=== PATIENT | male | born 1975 | race Caucasian/White ===

== ENCOUNTER 2017-11-03 16:39 | Inpatient (IN) | payer OTHER ==
[2017-11-03] MEDS ORDERED: SODIUM CHLORIDE 0.9% 1,000 ML IV STA (17:17)
--- NOTE | 2017-11-03 17:18 | ED ---
Abdominal Pain HPI - General Chief Complaint: Abdominal Pain Stated Complaint: Abd Pain Time Seen by Provider: 11/03/17 16:58 Source: patient, RN notes reviewed Mode of arrival: ambulatory Limitations: no limitations - History of Present Illness Initial Comments: This is a 42-year-old male who presents to the emergency department with chief complaint of abdominal pain. Patient states that he has been experiencing this abdominal pain for the past 3 years. He states that it comes and goes. He states that yesterday afternoon the pain returned. He states that it started out as a dull ache and then last night it became very intense. He describes it as sharp with radiation to his scrotum and upper abdomen. He states that he has suprapubic discomfort that is pressure-like and he feels like he has to urinate but is unable to. He states that in the past and this pain has lasted for a day or 2 and then went away. Patient states that last evening the pain became so intense that he fainted, fell over and hit his face on the bathtub. He states he believes this happened because the pain was extreme and intense. Patient denies any nausea or vomiting, diarrhea or constipation. He denies having a headache or dizziness today. Patient states that he has had chills and fevers yesterday and today. Patient states that now the pain is mild and has improved. He states he was taking Tylenol yesterday with minimal relief. Patient states pain is made better with slouching and pain is worse with sitting up straight or walking. - Related Data Home Medications Medication Instructions Recorded Confirmed No Known Home Medications [No 11/03/17 11/03/17 Known Home Medications] Allergies Allergy/AdvReac Type Severity Reaction Status Date / Time No Known Allergies Allergy Verified 11/03/17 16:53 Review of Systems ROS Statement: Those systems with pertinent positive or pertinent negative responses have been documented in the HPI. ROS Other: All systems not noted in ROS Statement are negative. Past Medical History Past Medical History: No Reported History History of Any Multi-Drug Resistant Organisms: MRSA Date of last positivie culture/infection: 2006 MDRO Source:: leg Past Surgical History: Hernia Repair Past Psychological History: No Psychological Hx Reported Smoking Status: Former smoker Past Alcohol Use History: Occasional Past Drug Use History: None Reported General Exam - General Exam Comments Initial Comments: General: Awake and alert, well-developed; in no apparent distress. HEENT: Head atraumatic, normocephalic. Pupils are equal, round and reactive to light. Extraocular movements intact. Oropharynx moist without erythema or exudate. Neck: Supple. Normal ROM. Cardiovascular: Regular rate and rhythm. No murmurs, rubs or gallops. Chest symmetrical. Respiratory: Lungs clear to auscultation bilaterally. No wheezes, rales or rhonchi. Normal respiratory effort with no use of accessory muscles. Abdomen: Abdomen is mildly distended. Suprapubic and periumbilical tenderness on palpation. Hypoactive bowel sounds 4 quadrants. Musculoskeletal: Normal ROM, no tenderness bilateral upper and lower extremities. Ambulating normally. Skin: [place], warm and dry without rashes or lesions. Neurological: Alert and oriented x3. CN II-XII grossly intact. Speech is fluent and answers are appropriate. No focal neuro deficits. Psychiatric: Normal mood and affect. No overt signs of depression or anxiety noted. Limitations: no limitations ([place] vital signs: Temperature 99.6, pulse 102, respirations 18, blood pressure 155/82, 96% on room air.) Course Vital Signs 11/03/17 11/03/17 11/03/17 16:42 18:02 18:19 Temperature 99.6 F 101.2 F H Pulse Rate 102 H 91 Respiratory 18 16 Rate Blood Pressure 155/82 145/81 O2 Sat by Pulse 96 97 Oximetry Medical Decision Making - Medical Decision Making This is a 42-year-old male who presented to the emergency department with chief complaint of suprapubic pain for one day. Patient states that he has had difficulty urinating and has pressure-like, sharp suprapubic pain that radiates up to his mid abdomen and down to his scrotum. He has reports fevers and chills. No nausea, vomiting diarrhea or constipation. On physical examination , abdomen is mildly distended, tenderness on palpation of suprapubic and periumbilical regions, hypoactive bowel sounds. CBC revealed a white count of 17.4 with left shift at 14.4. CMP was unremarkable. UA revealed small blood, however was otherwise unremarkable. CT of the abdomen and pelvis with contrast revealed evidence for acute uncomplicated sigmoid diverticulitis without perforation or abscess. It also revealed thickening of the urinary bladder likely due to surrounding inflammatory changes as well as mild. Periappendiceal fat stranding, however no other evidence for acute appendicitis. Patient did develop a fever while in the emergency department. He was started Ofirmev. Blood cultures are pending. Patient will be started on Flagyl and Levaquin. Patient is in agreement for admission. He will be admitted to Dr. Fajardo. - Lab Data Result diagrams: 11/03/17 17:24 11/03/17 17:24 Lab Results 11/03/17 11/03/17 11/03/17 Range/Units 17:24 17:24 18:00 WBC 17.4 H (3.8-10.6) k/uL RBC 5.20 (4.30-5.90) m/uL Hgb 15.0 (13.0-17.5) gm/dL Hct 44.4 (39.0-53.0) % MCV 85.5 (80.0-100.0) fL MCH 28.9 (25.0-35.0) pg MCHC 33.8 (31.0-37.0) g/dL RDW 12.8 (11.5-15.5) % Plt Count 289 (150-450) k/uL Neutrophils % 83 % Lymphocytes % 10 % Monocytes % 6 % Eosinophils % 1 % Basophils % 0 % Neutrophils # 14.4 H (1.3-7.7) k/uL Lymphocytes # 1.7 (1.0-4.8) k/uL Monocytes # 1.0 (0-1.0) k/uL Eosinophils # 0.2 (0-0.7) k/uL Basophils # 0.0 (0-0.2) k/uL Sodium 141 (137-145) mmol/L Potassium 3.5 (3.5-5.1) mmol/L Chloride 102 (98-107) mmol/L Carbon Dioxide 23 (22-30) mmol/L Anion Gap 16 mmol/L BUN 9 (9-20) mg/dL Creatinine 0.90 (0.66-1.25) mg/dL Est GFR (CKD-EPI)AfAm >90 (>60 ml/min/1.73 sqM) Est GFR (CKD-EPI)NonAf >90 (>60 ml/min/1.73 sqM) Glucose 115 H (74-99) mg/dL Calcium 9.6 (8.4-10.2) mg/dL Total Bilirubin 1.1 (0.2-1.3) mg/dL AST 29 (17-59) U/L ALT 37 (21-72) U/L Alkaline Phosphatase 88 (38-126) U/L Total Protein 7.5 (6.3-8.2) g/dL Albumin 4.6 (3.5-5.0) g/dL Amylase 37 (30-110) U/L Lipase 15 L (23-300) U/L Urine Color Yellow Urine Appearance Clear (Clear) Urine pH 6.5 (5.0-8.0) Ur Specific Jackson 1.007 (1.001-1.035) Urine Protein Trace H (Negative) Urine Glucose (UA) Negative (Negative) Urine Ketones Negative (Negative) Urine Blood Small H (Negative) Urine Nitrite Negative (Negative) Urine Bilirubin Negative (Negative) Urine Urobilinogen <2.0 (<2.0) mg/dL Ur Leukocyte Esterase Negative (Negative) Urine RBC <1 (0-5) /hpf Urine WBC 2 (0-5) /hpf Urine Mucus Rare H (None) /hpf - Radiology Data Radiology results: report reviewed, image reviewed CT abdomen and pelvis with contrast impression: 1. Findings indicative of severe acute uncomplicated sigmoid diverticulitis with no pericolonic fluid collection to suggest abscess and no free air. Low attenuation within the bowel henriquez is favored to represent diffuse edema rather than early intramural abscess. 2. Circumferential thickening of the urinary bladder is likely reacted to the adjacent extensive inflammatory changes in the pelvis and under distention of the urinary bladder. 3. Very mild periappendiceal fat stranding is seen although no other evidence of appendicitis is identified. Disposition Clinical Impression: Sigmoid diverticulitis Disposition: ADMITTED IP TO THIS [facility] Condition: Stable Is patient prescribed a controlled substance at d/c from ED?: No Referrals: Jaden Fajardo MD [Primary Care Provider] - 1-2 days Time of Disposition: 18:50
[2017-11-03 17:37] LABS: Basophils % (A) 0 %; Eosinophils # (A) 0.2 k/uL (0-0.7); Eosinophils % (A) 1 %; HCT 44.4 % (39.0-53.0); Lymphocytes # (A) 1.7 k/uL (1.0-4.8); Lymphocytes % (A) 10 %; MCH 28.9 pg (25.0-35.0); MCHC 33.8 g/dL (31.0-37.0); MCV 85.5 fL (80.0-100.0); Mean Platelet Volume 6.9; Monocytes % (A) 6 %; Neutrophils # (A) 14.4 k/uL (1.3-7.7); Neutrophils % (A) 83 %; Platelet Count 289 k/uL (150-450); RDW 12.8 % (11.5-15.5); WBC 17.4 k/uL (3.8-10.6)
[2017-11-03] MEDS ORDERED: ACETAMINOPHEN IV (For NPO) 1,000 MG in EMPTY BAG 1 BAG IVPB STA (18:03)
[2017-11-03 18:06] LABS: ALT 37 U/L (21-72); AST 29 U/L (17-59); Albumin 4.6 g/dL (3.5-5.0); Alkaline Phosphatase 88 U/L (38-126); Amylase 37 U/L (30-110); Anion Gap 16 mmol/L; Blood Urea Nitrogen 9 mg/dL (9-20); Calcium 9.6 mg/dL (8.4-10.2); Carbon Dioxide 23 mmol/L (22-30); Chloride 102 mmol/L (98-107); Glucose 115 mg/dL (74-99); Lipase 15 U/L (23-300); Potassium 3.5 mmol/L (3.5-5.1); Sodium 141 mmol/L (137-145); Total Bilirubin 1.1 mg/dL (0.2-1.3); Total Protein 7.5 g/dL (6.3-8.2)
[2017-11-03 18:18] LABS: Appearance,Urine Clear (Clear); Bilirubin,Urine Negative (Negative); Blood,Urine Small (Negative); Color,Urine Yellow; Glucose,Urine (UA) Negative (Negative); Ketones,Urine Negative (Negative); Leukocyte Esterase,Urine Negative (Negative); Mucus,Urine Rare /hpf; Nitrite,Urine Negative (Negative); PH, Urine 6.5 (5.0-8.0); Protein,Urine Trace (Negative); RBC,Urine <1 /hpf (0-5); Specific Gravity,Urine 1.007 (1.001-1.035); Urobilinogen,Urine <2.0 mg/dL (<2.0); WBC,Urine 2 /hpf (0-5)
--- NOTE | 2017-11-03 18:36 | CT ---
EXAMINATION TYPE: CT abdomen pelvis w con DATE OF EXAM: 11/03/2017 COMPARISON: NONE HISTORY: Suprapubic pain, fever. CT DLP: 686.1 mGycm Automated exposure control for dose reduction was used. TECHNIQUE: Helical acquisition of images was performed from the lung bases through the pelvis. CONTRAST: Performed without Oral Contrast and with IV Contrast, patient injected with 100 mL of Isovue 300. FINDINGS: LUNG BASES: No significant abnormality is appreciated. LIVER/GB: No significant abnormality is appreciated. No cholelithiasis seen. PANCREAS: Enhances homogeneously without ductal dilatation. SPLEEN: Nonenlarged. ADRENALS: No significant abnormality is seen. KIDNEYS: 2 small to accurately characterize posterior cortical right mid pole renal lesion is seen. FREE AIR: No free air is visualized. REPRODUCTIVE ORGANS: There is heterogeneity of the prostate gland, which appears nonenlarged. URINARY BLADDER: Circumferential thickening of the urinary bladder wall likely relates to incomplete distention and reactive change from the adjacent extensive pericolonic inflammatory change. ADENOPATHY: No greater than 1 cm short axis lymph node is seen within the abdomen or pelvis. OSSEOUS STRUCTURES: No significant abnormality is seen. BOWEL: There is very minimal periappendiceal nonspecific fat stranding although the distal appendix contains air in the appendix is nonenlarged. Appendix is retrocecal in the right lower quadrant. Ther e is extensive pericolonic fat stranding around the thickened henriquez of the sigmoid colon that contain s numerous sigmoid diverticula. No free air is seen to suggest perforation. No pericolonic fluid noel ection to correlate to abscess. Low-density within the bowel wall itself more likely relates to phleg monous changes. IMPRESSION: 1. FINDINGS INDICATIVE OF SEVERE ACUTE UNCOMPLICATED SIGMOID DIVERTICULITIS WITH NO PERICOLONIC FLUID COLLECTION TO SUGGEST ABSCESS AND NO FREE AIR. LOW-ATTENUATION WITHIN THE BOWEL HENRIQUEZ IS FAVORED TO REPRESENT DIFFUSE EDEMA RATHER THAN EARLY INTRAMURAL ABSCESS. 2. CIRCUMFERENTIAL THICKENING OF THE URINARY BLADDER IS LIKELY REACTIVE TO THE ADJACENT EXTENSIVE INF LAMMATORY CHANGES IN THE PELVIS AND UNDERDISTENTION OF THE URINARY BLADDER. 3. VERY MILD PERIAPPENDICEAL FAT STRANDING IS SEEN ALTHOUGH NO OTHER EVIDENCE OF APPENDICITIS IS IDEN TIFIED.
[2017-11-03] MEDS ORDERED: LEVOFLOXACIN 500MG-D5W PMX 500 MG in DEXTROSE/WATER 1 100ML.BAG IVPB STA (18:39)
[2017-11-03] MEDS ORDERED: metroNIDAZOLE-NS PMX 500 MG in SALINE 1 100ML.BAG IVPB STA ×2 (18:39→18:55)
[2017-11-03] MEDS ORDERED: ACETAMINOPHEN TAB 325 MG TAB PO PRN (18:50)
[2017-11-03] MEDS ORDERED: IBUPROFEN 400 MG TAB PO PRN (18:50)
[2017-11-03] MEDS ORDERED: NALOXONE 0.4 MG/ML 1 ML VIAL IV PRN (18:50)
[2017-11-03] MEDS: SODIUM CHLORIDE 0.9% 1,000 ML IV SCH (19:02)
--- NOTE | 2017-11-03 20:37 | P.HPIM ---
History of Present Illness H&P Date: 11/03/17 Chief Complaint: Acute abdominal pain Acute abdominal pain in bouts started yesterday associated with high temperature without nausea and vomiting or diarrhea, no hematochezia or hematemesis, the pain grade this 10 over 10 and in the area of the lower pelvis. Computed tomography scan of the abdomen and pelvis, indicate acute diverticulitis of the sigmoid colon. Patient admitted to the hospital 384 bed 2. Patient will be followed by Dr. Fajardo tomorrow on 11/04/2017. History and physical dictated on the number of dictation # [id number] Past Medical History Past Medical History: No Reported History History of Any Multi-Drug Resistant Organisms: MRSA Date of last positivie culture/infection: 2006 MDRO Source:: leg Past Surgical History: Hernia Repair Past Psychological History: No Psychological Hx Reported Smoking Status: Former smoker Past Alcohol Use History: Occasional Past Drug Use History: None Reported Medications and Allergies Home Medications Medication Instructions Recorded Confirmed Type No Known Home Medications [No 11/03/17 11/03/17 History Known Home Medications] Allergies Allergy/AdvReac Type Severity Reaction Status Date / Time No Known Allergies Allergy Verified 11/03/17 16:53 Physical Exam Vitals: Vital Signs Temp Pulse Resp BP Pulse Ox 11/03/17 19:35 100.2 F H 80 19 133/74 100 11/03/17 18:54 100.6 F H 11/03/17 18:19 91 16 145/81 97 11/03/17 18:02 101.2 F H 11/03/17 16:42 99.6 F 102 H 18 155/82 96 Intake and Output 11/03/17 11/03/17 11/03/17 06:59 14:59 22:59 Other: Weight 86.183 kg Results CBC & Chem 7: 11/03/17 17:24 11/03/17 17:24 Labs: Abnormal Lab Results - Last 24 Hours (Table) 11/03/17 11/03/17 11/03/17 Range/Units 17:24 17:24 18:00 WBC 17.4 H (3.8-10.6) k/uL Neutrophils # 14.4 H (1.3-7.7) k/uL Glucose 115 H (74-99) mg/dL Lipase 15 L (23-300) U/L Urine Protein Trace H (Negative) Urine Blood Small H (Negative) Urine Mucus Rare H (None) /hpf
[2017-11-04] MEDS ORDERED: metroNIDAZOLE-NS PMX 500 MG in SALINE 1 100ML.BAG IVPB SCH ×2 (02:00)
[2017-11-04] MEDS: MORPHINE SULFATE 2 MG/ML SYRINGE IV PRN ×5 (02:27→22:33)
[2017-11-04] MEDS: SODIUM CHLORIDE 0.9% 1,000 ML IV SCH ×2 (02:27→16:23)
[2017-11-04] MEDS ORDERED: LEVOFLOXACIN 500MG-D5W PMX 500 MG in DEXTROSE/WATER 1 100ML.BAG IVPB SCH (09:00)
[2017-11-04] MEDS: metroNIDAZOLE-NS PMX 500 MG in SALINE 1 100ML.BAG IVPB SCH ×3 (09:33→23:57)
--- NOTE | 2017-11-04 10:39 | HP ---
HISTORY AND PHYSICAL DATE OF SERVICE: 11/03/2017. IDENTIFYING DATA: Age [age] years old, white male, . ATTENDING PHYSICIAN: Dr. Fajardo. I am dictating the admission history and physical by Dr. Salter in the temporary absence of Dr. Fajardo. Dr. Fajardo will see the patient tomorrow and follow him. CHIEF COMPLAINT: Abdominal pain with fever. HISTORY OF PRESENT ILLNESS: A 42-year-old white male was yesterday at home and with his children, 2 boys, and prior to that any medical problem, and he has himself no history of any abdominal problem. However, he had a past history of bouts of thought to be prostatitis, but was not really treated and was passed through. Currently he felt feverish during the night and his temperature here was 101.2, and he had severe pain in the lower abdomen in the bladder area. He thought that it is from his prostate or he has a problem with the urine. Subsequently he waited for today, and today still his pain become progressively severe, apparently 10/10. He even could not touch his abdomen. The patient subsequently came to the emergency room, was seen and evaluated by Dr. Pablo, the ER physician, and they did a CT scan of the abdomen and the report was indicating the CT scan is significant of severe acute uncomplicated sigmoid diverticulitis with no pericolonic fluid collection to suggest abscess. No free air. He has low attenuation within the bowel wall, favored to represent diffuse edema rather than early intraluminal abscesses. Also, he had circumferential thickening of the urinary bladder, likely reactive to adjacent extensive inflammation in the pelvis area and under distention of the urinary bladder. Also, they found very mild pre-appendical fat stranding and is seen through without any other evidence of appendicitis. With these findings of the CT scan, the patient was admitted to the hospital for further antibiotic and hydration. In the emergency room he was seen initially by Lawanda Mcclain, the PA in the ER, and subsequently Dr. Pablo did see the patient. The disposition was acute sigmoid diverticulitis. Laboratories were indicating the urine was trace protein, small blood, negative nitrite, negative bilirubin and negative leukocyte, RBC less than 1, WBC 2, with the indication of no evidence of UTI. His amylase is 37 and lipase 15, and his total protein is 7.5, and alkaline phosphatase was normal. His white count is 17.4 with a hemoglobin 15 and hematocrit 44.4, and the MCV 85.5. His electrolytes are indicating sodium 141, potassium 3.5, and creatinine is 0.9, and BUN is 9. He has slightly elevated anion gap, probably with mild dehydration. His liver enzymes were normal. FAMILY HISTORY: He is . He has 2 boys, 9 and 8, and he has 2 brothers, full-blood related, Jada Anders, and his mother. They have also family history of diverticulitis in the family as well. MEDICATIONS: None. REVIEW OF SYSTEM: NEUROPSYCHIATRIC: Negative. CARDIOVASCULAR: Negative. RESPIRATORY: Negative. No asthma. No wheeze. GI: He has a history of lower abdominal pain intermittently, minimal time as estimated 1 day or 2 and goes away. : He has no symptoms. NEUROLOGIC: No symptoms. PSYCHIATRY: No symptoms. PHYSICAL EXAM: The patient is a 42-year-old white male, conscious, alert, oriented x3. His presentation with the initial the temperature 99.6 and followed by 100.2, followed by 100.6 and followed by 100.2, with presentation of pyrexia. Blood pressure was initially with the pain 155/82, the blood pressure followed by gradual improvement 145/81 and 133/74. He is on room air was satisfactory with the room air pulse ox 96 and 97 and 100%. HEENT: The head was normocephalic, atraumatic. Pupil was equal, reactive. Conjunctivae was pink. Sclerae was nonicteric. His nose was negative. Oropharynx was normal natural teeth. Uvula midline. Ears, no problem. No complain and no discharge. NECK: Supple. No JVD. No thyromegaly. No lymphadenopathy. Trachea midline. CHEST: Clear to auscultation and percussion and no wheezes, no rhonchi. HEART: PMI in the 5th intercostal space. Normal S1, S2. No gallop. The patient has never had high blood pressure or medication for it. ABDOMEN: Soft upper quadrant, however, the lower quadrant is extremely painful with even light touch as well as suprapubic area. EXTREMITIES: Normal and no edema and positive pulses bilateral and good perfusion. ASSESSMENT: Acute diverticulitis of the sigmoid colon, first presentation and first attack. Initial blood pressure, hypertension, and pyrexia associated with disease. PLAN: The patient was started already on medication and antibiotic as well. Because of the pain was given morphine sulfate by the ER for the underlying severe pain. He is on metronidazole as well as levofloxacin and Tylenol orally and he will be n.p.o. and IV fluid. Dr. Fajardo will see the patient tomorrow for continuing care. MMZARINA / SANJAYN: [id number] /
[2017-11-04] MEDS: LEVOFLOXACIN 500MG-D5W PMX 500 MG in DEXTROSE/WATER 1 100ML.BAG IVPB SCH (18:58)
--- NOTE | 2017-11-04 19:21 | PN ---
PROGRESS NOTE ATTENDING PHYSICIAN: Dr. Aletha Fajardo. CHIEF COMPLAINT: Re-evaluation. HISTORY OF PRESENT ILLNESS: This is a 42-year-old gentleman who was admitted to the hospital with abdominal pain. Evaluation has suggested the patient has acute diverticulitis. The patient has had fever, chills and his findings are consistent with diverticulitis on a CT scan. The patient still complains of some difficulty in voiding. REVIEW OF SYSTEMS: Neuro: Denies any headaches, dizziness. Psych: No anxiety. Cardiac: No chest pain, angina, palpitations. Respiratory: Denies shortness of breath, cough. GI: No nausea, vomiting. Complains of abdominal pain. No diarrhea. : No symptoms of dysuria, hematuria, urgency, frequency. EXTREMITIES: No pain. Constitutional: No fever or chills. PHYSICAL EXAMINATION: Pleasant gentleman. Temperature of 98.6, pulse 78, respiration 14, blood pressure 130/74 this morning, temperature 99.7 early in the night. HEENT: Normocephalic. NECK: Supple. No JVD. Conjunctivae pink. Sclerae nonicteric. Chest examination clear to auscultation and percussion. Cardiac: Normal S1, S2 with no gallops, murmurs. ABDOMEN: The abdomen tender, protuberant. Bowel sounds active. Extremities: Reveal no edema. No tenderness. Neurological: Awake, alert, oriented with well-coordinated movements. LABORATORY ASSESSMENT: None yet. ASSESSMENT: Acute diverticulitis. PLAN: The patient is stable. Continue present medical regimen. Patient's condition discussed with the patient. Prognosis guarded. The patient will be continued on Levaquin and Flagyl. The patient's condition is guarded. Prognosis guarded. MMODL / IJN: [id number] /
[2017-11-04] MEDS: HEPARIN SODIUM,PORCINE 5,000 UNIT/ML 1 ML VIAL SQ SCH (22:33)
[2017-11-05] MEDS: SODIUM CHLORIDE 0.9% 1,000 ML IV SCH ×3 (00:30→23:19)
[2017-11-05 07:47] LABS: HCT 37.6 % (39.0-53.0); HGB 12.7 gm/dL (13.0-17.5); MCH 30.5 pg (25.0-35.0); MCHC 33.9 g/dL (31.0-37.0); MCV 89.9 fL (80.0-100.0); Mean Platelet Volume 6.8; Platelet Count 216 k/uL (150-450); RBC 4.18 m/uL (4.30-5.90); RDW 13.6 % (11.5-15.5); WBC 10.7 k/uL (3.8-10.6)
[2017-11-05 08:07] LABS: Anion Gap 14 mmol/L; Blood Urea Nitrogen 9 mg/dL (9-20); Calcium 8.8 mg/dL (8.4-10.2); Carbon Dioxide 24 mmol/L (22-30); Chloride 104 mmol/L (98-107); Glucose 91 mg/dL (74-99); Potassium 4.1 mmol/L (3.5-5.1); Sodium 142 mmol/L (137-145)
[2017-11-05] MEDS: metroNIDAZOLE-NS PMX 500 MG in SALINE 1 100ML.BAG IVPB SCH ×3 (08:08→23:19)
[2017-11-05] MEDS: HEPARIN SODIUM,PORCINE 5,000 UNIT/ML 1 ML VIAL SQ SCH ×3 (08:09→23:19)
[2017-11-05 09:42] LABS: Erythrocyte Sedimentation Rate 87 mm/hr (0-15)
[2017-11-05] MEDS: MORPHINE SULFATE 2 MG/ML SYRINGE IV PRN (12:27)
[2017-11-05] MEDS: LEVOFLOXACIN 500MG-D5W PMX 500 MG in DEXTROSE/WATER 1 100ML.BAG IVPB SCH (18:18)
--- NOTE | 2017-11-05 23:16 | PN ---
PROGRESS NOTE ATTENDING PHYSICIAN: Dr. Aletha Fajardo. CHIEF COMPLAINT: Re-evaluation. HISTORY OF PRESENT ILLNESS: This 42-year-old gentleman was admitted to the hospital with acute diverticulitis. He is feeling better. REVIEW OF SYSTEMS: NEURO: Denies any headaches, dizziness. PSYCH: No anxiety. CARDIAC: No chest pain, angina, palpitations. RESPIRATORY: No shortness of breath, cough. GI: No nausea, vomiting. Abdominal pain improved. No bowel movement. : No symptoms of dysuria, hematuria. EXTREMITIES: Denies pain. CONSTITUTIONAL: No fever, chills. PHYSICAL EXAMINATION: Pleasant gentleman in no distress. VITAL SIGNS: Temperature 97.5, pulse 78, respirations 16, blood pressure 126/84, pulse ox of 98% on room air. HEENT: Normocephalic. NECK: No JVD. CHEST: Clear to auscultation and percussion. CARDIAC: Normal S1, S2 with no gallops, murmurs. ABDOMEN: Less distended. Bowel sounds present. Mild tenderness, lower abdomen. Some guarding, left lower quadrant. Bowel sounds active. Extremities reveal no edema. NEUROLOGICALLY: Awake, alert, oriented with well-coordinated movements. LABORATORY ASSESSMENT: White count down to 10.7, hemoglobin 12.7. Sed rate is 87. Electrolytes: BUN and creatinine normal. ASSESSMENT: Acute diverticulitis. PLAN: Continue present medical regimen. Patient's condition discussed with the patient. The patient was started on full liquid diet. If the patient continues to tolerate that, potential discharge home on oral antibiotics. The patient's condition is discussed with the patient. Prognosis guarded. MMODL / IJN: [id number] /
[2017-11-06 05:42] VITALS: PULSE 54; RESP 14
[2017-11-06] MEDS: HEPARIN SODIUM,PORCINE 5,000 UNIT/ML 1 ML VIAL SQ SCH (08:30)
[2017-11-06] MEDS: metroNIDAZOLE-NS PMX 500 MG in SALINE 1 100ML.BAG IVPB SCH (08:38)
[2017-11-06 08:50] VITALS: BP 151/87; TEMP 98.4
[2017-11-06 09:46] VITALS: BMI 28.0
== END 2017-11-06 10:26 | disposition home or self-care (01) | DRG 392 ==
LOC: EC 16:39 → 3SUR 18:49 → 5MS5E 11-05 09:11
PROVIDERS: ADMIT Internal Medicine; ATTEND Internal Medicine
DX: K57.32 Diverticulitis of large intestine without perforation or abscess without bleeding (principal); E86.0 Dehydration; Z87.891 Personal history of nicotine dependence; Z86.14 Personal history of Methicillin resistant Staphylococcus aureus infection
CPT/HCPCS: 36415; 74177; 80048; 80053; 81001; 82150; 83690; 85025; 85027; 85652; 87040; 87086; 93005; 96361; 96365; 96375; 99285

== ENCOUNTER 2018-01-09 07:00 | Day surgery (SDC) | payer OTHER ==
[2018-01-07 09:57] VITALS: BMI 25.1
[~2018-01-09 07:00] MED LIST: DEXAMETHASONE SOD PHOSPHATE 10 MG/ML 1 ML VIAL IV ONE; HYDROmorphone 0.5 MG/0.5 ML SYRINGE IVP PRN; LACTATED RINGERS 1,000 ML IV SCH; ONDANSETRON 4 MG/2 ML VIAL IVP ONE
[2018-01-09] MEDS ORDERED: IV FLUID CONTINUATION 1,000 ML IV ONE (07:08)
[2018-01-09 07:18] VITALS: RESP 16; TEMP 98.2
[2018-01-09] MEDS ORDERED: PROPOFOL 10 MG/ML 20 ML VIAL IV ONE (07:45)
--- NOTE | 2018-01-09 08:28 | P.OP ---
Date of Procedure: 01/09/18 Preoperative Diagnosis: Diverticulitis Postoperative Diagnosis: Diverticulosis and sigmoid polyp Procedure(s) Performed: colonoscopy with polypectomy Anesthesia: MAC Surgeon: Eugenio Leal Estimated Blood Loss (ml): 0 Pathology: other (sigmoid polyp) Condition: stable Disposition: same day Description of Procedure: Patient was brought into endo suite. Placed in left lateral decub position. Timeout was performed correct patient correct procedure correct site was verified.Rectal exam was performed no abnormalities were noted scope was passed through the rectum and into the sigmoid where there was multiple diverticuli noted. There was a tortuous sigmoid colon. It was felt that it would be safest for the patient to proceed with the pediatric scope. Scope was switched to a pediatric scope which was then passed from the rectum to the cecum with ease. Scope was slowly withdrawn being sure to visualize all henriquez of the colon on the way out. There was a small sigmoid polyp noted this was removed via snare polypectomy. This was sent to pathology. Scope was retroflexed in the rectum and no abnormalities were noted. Patient tolerated procedure well no apparent complications. He'll follow-up in the office regarding pathology of polyp. Will likely need a repeat colonoscopy in 5 years pending path
[2018-01-09 08:42] VITALS: BP 160/94; PULSE 51
== END 2018-01-09 10:17 | disposition home or self-care (01) ==
LOC: ORWHC2ENDO 07:00
PROVIDERS: ATTEND Student in an Organized Health Care Education/Training Program
DX: K63.5 Polyp of colon (principal); K57.30 Diverticulosis of large intestine without perforation or abscess without bleeding; Q43.8 Other specified congenital malformations of intestine; K21.9 Gastro-esophageal reflux disease without esophagitis; Z87.891 Personal history of nicotine dependence; Z79.899 Other long term (current) drug therapy
CPT/HCPCS: 88305; 45385; J2704

== ENCOUNTER → 2020-12-30 | Outpatient (CLI) | payer BC ==
--- NOTE | 2021-01-01 23:46 | CT ---
EXAMINATION TYPE: CT abdomen pelvis w con DATE OF EXAM: 12/30/2020 COMPARISON: 11/03/2017 HISTORY: 45-year-old male LLQ pain history of diverticulitis TECHNIQUE: Contiguous axial scanning of the abdomen and pelvis following administration of 100 ml Iso es 300 IV contrast. Delayed images through the kidneys and coronal/sagittal reconstructions perform ed. CT DLP: 1388 mGycm Automated exposure control for dose reduction was used. FINDINGS: Heart normal size without pericardial effusion. Minimal dependent atelectasis at the lung bases. No p leural effusion. Suspect a tiny hiatal hernia. Liver borderline in size measuring 17.3 cm. No focal liver lesion. No biliary ductal dilatation. Port al venous system is patent. Gallbladder, adrenal glands, left kidney, spleen with small hilar splenule, and pancreas appear withi n normal limits. Tiny 6 mm cortical hypodensity posterior mid pole right kidney too small for accurate CT characteriza tion, unchanged from 2018, likely tiny cortical cyst. Numerous nonenlarged and a few borderline-enlarged mesenteric lymph nodes are noted measuring up to 8 mm, smaller from 2018 where they measured up to 1 cm, likely reactive/post inflammatory. No dilated small bowel, free fluid, or free air. Normal appendix. Oral contrast has progressed to the mid transverse colon. There is mild overall ston e burden. Left-sided clonic diverticulosis, greatest in the sigmoid colon. However, there is focal mo derate wall thickening and mild to moderate surrounding inflammatory fat stranding centered at the mi d to lower descending colon. Bladder is urine distended. Pelvic phleboliths. Prostate gland measures 4.1 cm wide. No abnormal flui d collection in the pelvis or pelvic lymphadenopathy. Bones: No osseous destructive process. IMPRESSION: EXAM POSITIVE FOR ACUTE DIVERTICULITIS ALONG THE MID TO LOWER DESCENDING COLON WITH MILD TO MODERATE SURROUNDING INFLAMMATION. NO ABSCESS OR FREE AIR. A Kaufman level critical message alert has been initiated for Jerson Alvarado Jr, DO via the [employer] Critical Results System on 01/01/2021 11:43 PM. This message alert has been sent to Jerson roach Jr, DO via the preferences provided by the clinician for the receipt of Radiology Critical Finding s. Message ID [id number].
== END | disposition home or self-care (01) ==
LOC: RADCTMAIN 14:18
PROVIDERS: ATTEND Family Medicine
DX: K57.32 Diverticulitis of large intestine without perforation or abscess without bleeding (principal)
CPT/HCPCS: 74177; Q9967

== ENCOUNTER → 2021-08-03 | Outpatient (CLI) | payer BC ==
--- NOTE | 2021-08-03 14:39 | US ---
EXAMINATION TYPE: US scrotum with doppler. Grayscale and color Doppler Duplex imaging performed of t he scrotum. DATE OF EXAM: 08/03/2021 COMPARISON: NONE CLINICAL HISTORY: R10.32 DISCOMFORT OF LT GROIN. Left groin pain for the past 3 weeks. EXAM MEASUREMENTS: TESTICLES: Right Testicle: 4.3x 2.6x 1.6 cm Left Testicle: 4.4x 3.1 x 2.0 cm EPIDIDYMIS HEAD: Right Epididymis: 1.1 x 1.1 x 1.0 cm Left Epididymis: 0.9 x 1.2 x 1.0 cm Doppler performed to assess for testicular vascularity; good bilateral color flow and waveforms are s een. There is no evidence of testicular torsion. Presence of hydroceles: yes Presence of varicoceles: yes bilateral hydroceles seen. Patient also had same day left groin ultrasound to evaluate for hernia. IMPRESSION: 1. There are bilateral hydroceles greater on the left. Debris within fluid is noted correlate clinica lly.
--- NOTE | 2021-08-03 14:40 | US ---
EXAMINATION TYPE: US groin LT DATE OF EXAM: 08/03/2021 COMPARISON: NONE CLINICAL HISTORY: R10.32 LT LOWER QUADRANT PAIN. Left groin pain fort the past 3 weeks. Echogenic area seen in left groin area of pain. Movement seen with valsalva. Possible left inguinal h ernia with the neck measuring 0.5cm Possible Left inguinal hernia. IMPRESSION: 1. Findings are suspicious for left inguinal hernia. Recommend follow-up CT scan of the pelvis.
== END | disposition home or self-care (01) ==
LOC: RADUSWWP 12:57
PROVIDERS: ATTEND Family Medicine
DX: N43.3 Hydrocele, unspecified (principal)
CPT/HCPCS: 76870; 93975

== ENCOUNTER → 2023-07-19 | Outpatient (CLI) | payer BC ==
--- NOTE | 2023-07-19 08:31 | XR ---
EXAMINATION TYPE: XR chest 2V DATE OF EXAM: 07/19/2023 COMPARISON: NONE TECHNIQUE: PA and lateral views submitted. HISTORY: Pain FINDINGS: The lungs are clear and there is no pneumothorax, pleural effusion, or focal pneumonia. Heart size normal and no overt failure. Osseous structures demonstrate hypertrophic and degenerative changes of the spine. Mild hyperinflation associated with asthma or COPD. IMPRESSION: 1. No acute process.
--- NOTE | 2023-07-19 10:46 | US ---
EXAMINATION TYPE: US abdomen complete DATE OF EXAM: 07/19/2023 COMPARISON: CT 12/30/2020 CLINICAL INDICATION: Male, 48 years old with history of R10.13 EPIGASTRIC PAIN; Patient states epigas tric pain that comes and goes. No other pain or symptoms TECHNIQUE: Multiple sonographic images of the abdomen are obtained. FINDINGS: EXAM MEASUREMENTS: Liver Length: 16.5 cm Gallbladder Wall: 0.2 cm CBD: 0.3 cm Spleen: 9.7 cm Right Kidney: 11.8 x 4.8 x 5.2 cm Left Kidney: 11.1 x 6.3 x 5.3 cm [employer]ET[employer] NOTES: Slightly limited due to midline gas Pancreas: Obscured by bowel gas Liver: wnl as best visualized Gallbladder: No stones seen. Wall WNL Evidence for sonographic Penn's sign: No CBD: wnl Spleen: wnl as best seen Right Kidney: No hydronephrosis or masses seen as best visualized Left Kidney: No hydronephrosis or masses seen as best visualized Upper IVC: wnl Abd Aorta: wnl IMPRESSION: No gallstones or biliary ductal dilatation.
== END | disposition home or self-care (01) ==
LOC: RADUSWWP 07:31
PROVIDERS: ATTEND Family Medicine
DX: R10.13 Epigastric pain (principal); R19.8 Other specified symptoms and signs involving the digestive system and abdomen; J44.89 Other specified chronic obstructive pulmonary disease
CPT/HCPCS: 71046; 76700